=== PATIENT | female | born 1995 ===

== ENCOUNTER 2021-08-03 09:00 | Inpatient (IN) | payer BC ==
[2021-08-03] MEDS ORDERED: Ondansetron 4 MG/2 ML SDV IVPUSH PRN (12:08)
[2021-08-03] MEDS ORDERED: Lidocaine 1% 50 ML MDV INJECT PRN (12:08)
[2021-08-03] MEDS ORDERED: Sodium Chloride 0.9% 2.5 ML Syringe FLUSH PRN (12:08)
[2021-08-03] MEDS ORDERED: Water For Irrigation,Sterile 1,000 ML Container IRR PRN (12:08)
[2021-08-03] MEDS ORDERED: Nalbuphine 10 MG/1 ML Vial IVPUSH PRN (12:08)
[2021-08-03] MEDS ORDERED: Misoprostol 200 MCG Tab PO PRN (12:08)
[2021-08-03] MEDS ORDERED: Sodium Chloride 0.9% 10 ML Syringe FLUSH PRN (12:08)
[2021-08-03] MEDS ORDERED: Tranexamic Acid 1,000 MG in Sodium Chloride 0.9% 100 ML IV PRN (12:08)
[2021-08-03] MEDS ORDERED: Methylergonovine 0.2 MG/1 ML Amp IM PRN (12:08)
[2021-08-03] MEDS ORDERED: Sodium Chloride 0.9% 20 ML SDV IV PRN (12:08)
[2021-08-03] MEDS ORDERED: Carboprost Tromethamine 250 MCG/1 ML Amp IM PRN (12:08)
[2021-08-03] MEDS ORDERED: Oxytocin/0.9 % Sodium Chloride 30 UNIT/500 ML BAG IV SCH ×2 (12:15→12:45)
[2021-08-03] MEDS ORDERED: Terbutaline 1 MG/ML SDV SUBCUT PRN (12:34)
[2021-08-03] MEDS: Lactated Ringers 1,000 ML IV SCH ×2 (12:50→17:29)
[2021-08-03] MEDS: Butorphanol 1 MG/ML SDV IVPUSH PRN ×2 (12:58→14:21)
[2021-08-03] MEDS ORDERED: Ampicillin 2 GM in Sodium Chloride 0.9% 100 ML IV ONE (13:00)
[2021-08-03] MEDS ORDERED: Ropivacaine HCl/PF 100 ML ONE (15:56)
[2021-08-03] MEDS ORDERED: ePHEDrine 50 MG/ML SDV IVPUSH PRN ×2 (16:05)
--- NOTE | 2021-08-03 16:07 | PCM.PREANE ---
Preanesthetic Assessment - Anesthesia/Transfusion/Family Hx Anesthesia History: No Prior Anesthesia Family History of Anesthesia Reaction: No - Review of Systems General: No Symptoms Pulmonary: No Symptoms Cardiovascular: No Symptoms Gastrointestinal: No Symptoms Neurological: No Symptoms Other: Reports: None - Physical Assessment Height: 1.65 m Weight: 63.957 kg ASA Class: 2 Mental Status: Alert & Oriented x3 Dentition: Reports: Normal Dentition ROM/Head Extension: Full Lungs: Clear to Auscultation, Normal Respiratory Effort Cardiovascular: Regular Rate, Regular Rhythm - Lab Values: Laboratory Last Values WBC 16.36 K/uL (4.0-11.0) H 08/03/21 12:35 RBC 4.23 M/uL (4.30-5.90) L 08/03/21 12:35 Hgb 12.2 g/dL (12.0-16.0) 08/03/21 12:35 Hct 36.9 % (36.0-46.0) 08/03/21 12:35 MCV 87.2 fL (80.0-98.0) 08/03/21 12:35 MCH 28.8 pg (27.0-32.0) 08/03/21 12:35 MCHC 33.1 g/dL (31.0-37.0) 08/03/21 12:35 RDW Std Deviation 46.4 fl (28.0-62.0) 08/03/21 12:35 RDW Coeff of Tika 15 % (11.0-15.0) 08/03/21 12:35 Plt Count 296 K/uL (150-400) 08/03/21 12:35 MPV 9.80 fL (7.40-12.00) 08/03/21 12:35 Nucleated RBC % 0.0 /100WBC 08/03/21 12:35 Nucleated RBCs # 0 K/uL 08/03/21 12:35 SARS-CoV-2 RNA (SANDRA) NEGATIVE (NEGATIVE) 08/03/21 12:25 Blood Type O NEGATIVE 08/03/21 12:45 Antibody Screen POSITIVE 08/03/21 12:45 - Allergies Allergies/Adverse Reactions: Allergies Allergy/AdvReac Type Severity Reaction Status Date / Time No Known Allergies Allergy Verified 08/03/21 09:19 - Acknowledgements Anesthesia Type Planned: Epidural Pt an Appropriate Candidate for the Planned Anesthesia: Yes Alternatives and Risks of Anesthesia Discussed w Pt/Guardian: Yes Pt/Guardian Understands and Agrees with Anesthesia Plan: Yes PreAnesthesia Questionnaire - Past Health History Medical/Surgical History: Denies 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 (IN 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) MEDS Current Meds: Current Medications Butorphanol Tartrate (Butorphanol 1 Mg/Ml Sdv) 1 mg IVPUSH Q1H PRN PRN Reason: Pain (severe 7-10) Last Admin: 08/03/21 14:21 Dose: 1 mg Documented by: Carboprost Tromethamine (Carboprost Tromethamine 250 Mcg/1 Ml Amp) 250 mcg IM ASDIRECTED PRN PRN Reason: Post Hemorrhage Lactated Ringer's (Ringers, Lactated) 1,000 mls @ 150 mls/hr IV ASDIRECTED ARLETTE Last Admin: 08/03/21 12:50 Dose: 500 mls/hr Documented by: Oxytocin/Sodium Chloride (Oxytocin 30 Unit In Ns 0.9% 500 Ml Premix) 30 unit in 500 mls @ 500 mls/hr IV TITRATE [facility] Tranexamic Acid 1,000 mg/ (Sodium Chloride) 110 mls @ 660 mls/hr IV ONETIME PRN PRN Reason: Bleeding Oxytocin/Sodium Chloride (Oxytocin 30 Unit In Ns 0.9% 500 Ml Premix) 30 unit in 500 mls @ 2 mls/hr IV TITRATE [facility]; Protocol Ampicillin Sodium 1 gm/ Sodium (Chloride) 50 mls @ 100 mls/hr IV Q4H [facility] Lidocaine HCl (Lidocaine 1% 50 Ml Mdv) 50 ml INJECT ONETIME PRN PRN Reason: Laceration repair Methylergonovine Maleate (Methylergonovine 0.2 Mg/1 Ml Amp) 0.2 mg IM ASDIRECTED PRN PRN Reason: Post Hemorrhage Misoprostol (Misoprostol 200 Mcg Tab) 200 mcg PO ONETIME PRN PRN Reason: Post Hemorrhage Nalbuphine HCl (Nalbuphine 10 Mg/1 Ml Vial) 10 mg IVPUSH Q1H PRN PRN Reason: Pain (severe 7-10) Ondansetron HCl (Ondansetron 4 Mg/2 Ml Sdv) 4 mg IVPUSH Q4H PRN PRN Reason: Nausea/Vomiting Sodium Chloride (Sodium Chloride 0.9% 10 Ml Syringe) 10 ml FLUSH ASDIRECTED PRN PRN Reason: Keep Vein Open Sodium Chloride (Sodium Chloride 0.9% 2.5 Ml Syringe) 2.5 ml FLUSH ASDIRECTED PRN PRN Reason: Keep Vein Open Sodium Chloride (Sodium Chloride 0.9% 20 Ml Sdv) 10 ml IV ASDIRECTED PRN PRN Reason: IV Use Sterile Water (Water For Irrigation,Sterile 1,000 Ml Container) 1,000 ml IRR ASDIRECTED PRN PRN Reason: delivery Terbutaline Sulfate (Terbutaline 1 Mg/Ml Sdv) 0.25 mg SUBCUT ASDIRECTED PRN PRN Reason: Tacysystole Discontinued Medications Ampicillin Sodium 2 gm/ Sodium (Chloride) 100 mls @ 200 mls/hr IV ONETIME ONE Stop: 08/03/21 13:29 Last Admin: 08/03/21 12:50 Dose: 200 mls/hr Documented by: Ropivacaine (Naropin 0.2%) Confirm Administered Dose 100 mls @ as directed .ROUTE .[facility]-MED ONE Stop: 08/03/21 15:57
--- NOTE | 2021-08-03 16:10 | PCM.SN.2 ---
- Pre-Procedure Checklist Attending Provider Aware: No Chart Reviewed: No Consent Signed: No Labs Reviewed: No VS/FHR Reviewed: No Patient Identification Confirmation Method: Reports: Chart Visual, ID Band Barcode, ID Band Visual Pt an Appropriate Candidate for the Planned Anesthesia: No Alternatives and Risks of Anesthesia Discussed w Pt/Guardian: No - Procedure Procedure Start Date: 08/03/21 Procedure Start Time: 15:44 Functional IV: Yes Patient Position: Reports: Left Lateral Prep: Reports: Betadine x3 Regional Placement Level: Reports: L3-4 Approach: Reports: Midline Technique: Reports: MYRANDA Glass Syringe Parasthesia: Reports: None Continuous Infusion Start Time: 15:50 Continuous Infusion Medication: 0.2% Naropin Continuous Infusion Rate: 14 Continuous Infusion Lockout Dose (cc/hr): 28 Patient Position Post Placement: Reports: Supline/KIM Post-procedure Pain Level: 2 Procedure End Date: 08/03/21 Procedure End Time: 16:44
--- NOTE | 2021-08-03 16:11 | PCM.POSTAN ---
POST ANESTHESIA ASSESSMENT - MENTAL STATUS Mental Status: Alert, Oriented - RESPIRATORY Respiratory Status: Respiratory Rate WNL, Airway Patent, O2 Saturation Stable - CARDIOVASCULAR CV Status: Pulse Rate WNL, Blood Pressure Stable - GASTROINTESTINAL GI Status: No Symptoms - POST OP HYDRATION Hydration Status: Adequate & Stable
[2021-08-03] MEDS ORDERED: Ropivacaine/PF 400 MG/200 ML PCA EPIDUR SCH (16:15)
[2021-08-03] MEDS ORDERED: Ampicillin 1 GM Vial ONE (16:49)
[2021-08-03] MEDS: Ampicillin 1 GM in Sodium Chloride 0.9% 50 ML IV SCH ×2 (16:55→21:05)
[2021-08-03] MEDS ORDERED: Oxytocin 10 Units/1 ML SDV ONE (21:56)
[2021-08-03] MEDS ORDERED: Lidocaine 1% 20 ML MDV ONE (22:07)
[2021-08-03] MEDS ORDERED: Bisacodyl 10 MG Supp RECTAL PRN (22:46)
[2021-08-03] MEDS ORDERED: Witch Hazel Medicated Pads 40/Jar TOP PRN (22:46)
[2021-08-03] MEDS ORDERED: Docusate Sodium 100 MG Cap PO PRN (22:46)
[2021-08-03] MEDS ORDERED: Oxytocin 10 Units/1 ML SDV IM ONE (22:46)
[2021-08-03] MEDS ORDERED: Lanolin 100% Cream 7 GM Tube TOP PRN (22:46)
[2021-08-03] MEDS ORDERED: Benzocaine/Menthol 20%-0.5% Spray 78 GM Cannister TOP PRN (22:46)
[2021-08-03] MEDS ORDERED: oxyCODONE 5 MG Tab PO PRN (22:46)
[2021-08-03] MEDS ORDERED: Ibuprofen 800 MG Tab PO PRN (22:46)
--- NOTE | 2021-08-03 22:54 | PCM.DEL ---
L & D Note - General Info Date of Service: 08/03/21 Mother's Due Date: 07/25/21 - Delivery Note Labor: Spontaneous Delivery Outcome: Livebirth Infant Delivery Method: Spontaneous Vaginal Delivery-Single Presentation: Vertex Nuchal Cord: None Anesthesia Type: Epidural, Local Anesthetic: Lidocaine (Xylocaine) 1% Plain Amniotic Fluid Description: Meconium Stained Episiotomy Type: None Laceration: 2nd Degree, Periurethral Suture type: Vicryl Suture size: 4-0 Placenta: Intact, Spontaneous Cord: 3 Vessels Resuscitation Needed: No [place]: Stimulated, Warmed Score 1 min: 8 Score 5 min: 9 Delivery Comments (Free Text/Narrative):: Live female Weight 3630g Received 3 doses of Ampicillin after SROM for GBS+ - General Info Date of Service: 08/03/21 - Patient Data Weight - Most Recent: 63.957 kg Lab Results Last 24 Hours: Laboratory Results - last 24 hr 08/03/21 08/03/21 08/03/21 Range/Units 12:25 12:35 12:45 WBC 16.36 H (4.0-11.0) K/uL RBC 4.23 L (4.30-5.90) M/uL Hgb 12.2 (12.0-16.0) g/dL Hct 36.9 (36.0-46.0) % MCV 87.2 (80.0-98.0) fL MCH 28.8 (27.0-32.0) pg MCHC 33.1 (31.0-37.0) g/dL RDW Std Deviation 46.4 (28.0-62.0) fl RDW Coeff of Tika 15 (11.0-15.0) % Plt Count 296 (150-400) K/uL MPV 9.80 (7.40-12.00) fL Nucleated RBC % 0.0 /100WBC Nucleated RBCs # 0 K/uL SARS-CoV-2 RNA (SANDRA) NEGATIVE (NEGATIVE) Blood Type O NEGATIVE Antibody Screen NEGATIVE Antibody Identification Cancelled Med Orders - Current: Current Medications Acetaminophen (Acetaminophen 500 Mg Tab) 1,000 mg PO Q4H PRN PRN Reason: Pain (mild 1-3) Benzocaine/Menthol (Benzocaine/Menthol 20%-0.5% Prosperity 78 Gm Cannister) 78 gm TOP ASDIRECTED PRN PRN Reason: Perineal Comfort Measure Bisacodyl (Bisacodyl 10 Mg Supp) 10 mg RECTAL ONETIME PRN PRN Reason: Constipation Butorphanol Tartrate (Butorphanol 1 Mg/Ml Sdv) 1 mg IVPUSH Q1H PRN PRN Reason: Pain (severe 7-10) Last Admin: 08/03/21 14:21 Dose: 1 mg Documented by: Carboprost Tromethamine (Carboprost Tromethamine 250 Mcg/1 Ml Amp) 250 mcg IM ASDIRECTED PRN PRN Reason: Post Hemorrhage Docusate Sodium (Docusate Sodium 100 Mg Cap) 100 mg PO Q12H PRN PRN Reason: Constipation Emollient Ointment (Lanolin 100% Cream 7 Gm Tube) 0 gm TOP ASDIRECTED PRN PRN Reason: Sore Nipples Ephedrine Sulfate (Ephedrine 50 Mg/Ml Sdv) 10 mg IVPUSH Q1M PRN PRN Reason: Hypotension Ephedrine Sulfate (Ephedrine 50 Mg/Ml Sdv) 10 mg IVPUSH Q5M PRN PRN Reason: Hypotension Lactated Ringer's (Ringers, Lactated) 1,000 mls @ 150 mls/hr IV ASDIRECTED [facility] [place] Last Admin: 08/03/21 17:29 Dose: 150 mls/hr Documented by: Oxytocin/Sodium Chloride (Oxytocin 30 Unit In Ns 0.9% 500 Ml Premix) 30 unit in 500 mls @ 500 mls/hr IV TITRATE [facility] [place] Tranexamic Acid 1,000 mg/ (Sodium Chloride) 110 mls @ 660 mls/hr IV ONETIME PRN PRN Reason: Bleeding Oxytocin/Sodium Chloride (Oxytocin 30 Unit In Ns 0.9% 500 Ml Premix) 30 unit in 500 mls @ 2 mls/hr IV TITRATE [facility] [place]; Protocol Ampicillin Sodium 1 gm/ Sodium (Chloride) 50 mls @ 100 mls/hr IV Q4H [facility] [place] Last Admin: 08/03/21 21:05 Dose: 100 mls/hr Documented by: Ibuprofen (Ibuprofen 800 Mg Tab) 800 mg PO Q8H PRN PRN Reason: Cramping Lidocaine HCl (Lidocaine 1% 50 Ml Mdv) 50 ml INJECT ONETIME PRN PRN Reason: Laceration repair Methylergonovine Maleate (Methylergonovine 0.2 Mg/1 Ml Amp) 0.2 mg IM ASDIRECTED PRN PRN Reason: Post Hemorrhage Miscellaneous Medication (Phenylephrine Hcl In 0.9% Nacl 1 Mg/10 Ml Syringe) 0.1 mg IVPUSH Q1M PRN PRN Reason: Hypotension Misoprostol (Misoprostol 200 Mcg Tab) 200 mcg PO ONETIME PRN PRN Reason: Post Hemorrhage Nalbuphine HCl (Nalbuphine 10 Mg/1 Ml Vial) 10 mg IVPUSH Q1H PRN PRN Reason: Pain (severe 7-10) Ondansetron HCl (Ondansetron 4 Mg/2 Ml Sdv) 4 mg IVPUSH Q4H PRN PRN Reason: Nausea/Vomiting Oxycodone HCl (Oxycodone 5 Mg Tab) 5 mg PO Q2H PRN PRN Reason: Pain (severe 7-10) Oxytocin (Oxytocin 10 Units/1 Ml Sdv) 10 unit IM ASDIRECTED ONE Stop: 08/03/21 22:47 Ropivacaine (Ropivacaine/Pf 400 Mg/200 Ml Aging Room Operator) 400 mg EPIDUR ASDIRECTED ARLETTE Sodium Chloride (Sodium Chloride 0.9% 10 Ml Syringe) 10 ml FLUSH ASDIRECTED PRN PRN Reason: Keep Vein Open Sodium Chloride (Sodium Chloride 0.9% 2.5 Ml Syringe) 2.5 ml FLUSH ASDIRECTED PRN PRN Reason: Keep Vein Open Sodium Chloride (Sodium Chloride 0.9% 20 Ml Sdv) 10 ml IV ASDIRECTED PRN PRN Reason: IV Use Sterile Water (Water For Irrigation,Sterile 1,000 Ml Container) 1,000 ml IRR ASDIRECTED PRN PRN Reason: delivery Terbutaline Sulfate (Terbutaline 1 Mg/Ml Sdv) 0.25 mg SUBCUT ASDIRECTED PRN PRN Reason: Tacysystole Witch Wilma (Witch Wilma Medicated Pads 40/Jar) 1 pad TOP ASDIRECTED PRN PRN Reason: comfort care Discontinued Medications Ampicillin Sodium (Ampicillin 1 Gm Vial) Confirm Administered Dose 1 gm .ROUTE .STK-MED ONE Stop: 08/03/21 16:50 Ampicillin Sodium 2 gm/ Sodium (Chloride) 100 mls @ 200 mls/hr IV ONETIME ONE Stop: 08/03/21 13:29 Last Admin: 08/03/21 12:50 Dose: 200 mls/hr Documented by: Ropivacaine (Naropin 0.2%) Confirm Administered Dose 100 mls @ as directed .ROUTE .STK-MED ONE Stop: 08/03/21 15:57 Lidocaine HCl (Lidocaine 1% 20 Ml Mdv) Confirm Administered Dose 20 ml .ROUTE .STK-MED ONE Stop: 08/03/21 22:08 Last Admin: 08/03/21 22:10 Dose: 20 ml Documented by: Oxytocin (Oxytocin 10 Units/1 Ml Sdv) Confirm Administered Dose 20 unit .ROUTE .STK-MED ONE Stop: 08/03/21 21:57 Last Admin: 08/03/21 22:15 Dose: 10 unit Documented by: - Problem List & Annotations (1) Vaginal delivery SNOMED Code(s): 888081787 Code(s): O80 - ENCOUNTER FOR FULL-TERM UNCOMPLICATED DELIVERY Status: Acute Current Visit: Yes - Problem List Review Problem List Initiated/Reviewed/Updated: Yes - My Orders Last 24 Hours: My Active Orders 08/03/21 09:00 Patient Status [ADT] Routine 08/03/21 09:25 Resuscitation Status Routine 08/03/21 09:28 Up ad Janett [RC] ASDIRECTED Vital Signs [RC] PER UNIT ROUTINE 08/03/21 12:05 Admission Status [Patient Status] [ADT] Routine 08/03/21 12:08 Heart Tones [RC] CONTINUOUS Notify Provider [RC] PRN Butorphanol [Stadol] 1 mg IVPUSH Q1H PRN Carboprost Tromethamine [Hemabate DS] 250 mcg IM ASDIRECTED PRN Lidocaine 1% [Xylocaine 1%] 50 ml INJECT ONETIME PRN Methylergonovine [Methergine] 0.2 mg IM ASDIRECTED PRN Nalbuphine [Nubain] 10 mg IVPUSH Q1H PRN Ondansetron [Zofran] 4 mg IVPUSH Q4H PRN Sodium Chloride 0.9% [Normal Saline] 10 ml IV ASDIRECTED PRN Sodium Chloride 0.9% [Saline Flush] 10 ml FLUSH ASDIRECTED PRN Sodium Chloride 0.9% [Saline Flush] 2.5 ml FLUSH ASDIRECTED PRN Tranexamic Acid [Cyklokapron] 1,000 mg Sodium Chloride 0.9% [Normal Saline AdvBag] 100 ml IV ONETIME Water For Irrigation,Sterile [Sterile Water for Irrigation] 1,000 ml IRR ASDIRECTED PRN miSOPROStoL [Cytotec] 200 mcg PO ONETIME PRN Peripheral IV Insertion Adult [OM.PC] Routine 08/03/21 12:15 Lactated Ringers [Ringers, Lactated] 1,000 ml IV ASDIRECTED Oxytocin/0.9 % Sodium Chloride [Oxytocin 30 Unit in NS 0.9% 500 ML Premix] 30 unit in 500 ml IV TITRATE 08/03/21 12:34 Communication Order [RC] ASDIRECTED Terbutaline [Brethine] 0.25 mg SUBCUT ASDIRECTED PRN 08/03/21 12:35 RPR (SYPHILIS SERO) W/ RFLX [REF] Routine 08/03/21 12:45 Oxytocin/0.9 % Sodium Chloride [Oxytocin 30 Unit in NS 0.9% 500 ML Premix] 30 unit in 500 ml IV TITRATE 08/03/21 15:30 Ampicillin 1 gm Sodium Chloride 0.9% [Normal Saline AdvBag] 50 ml IV Q4H 08/03/21 22:46 Patient Status [ADT] Routine May Shower [RC] ASDIRECTED Notify Provider Vital Signs [RC] ASDIRECTED Up ad Janett [RC] ASDIRECTED Vital Signs [RC] PER UNIT ROUTINE BLOOD GAS VENOUS UMBILICAL [BG] Urgent Acetaminophen [Tylenol Extra Strength] 1,000 mg PO Q4H PRN Benzocaine/Menthol [Dermoplast Pain Relief 20%-0.5% Prosperity] 78 gm TOP ASDIRECT ED PRN Docusate Sodium [Colace] 100 mg PO Q12H PRN Ibuprofen [Motrin] 800 mg PO Q8H PRN Lanolin [Lansinoh HPA] See Dose Instructions TOP ASDIRECTED PRN Oxytocin [Pitocin] 10 unit IM ASDIRECTED ONE bisacodyL [Dulcolax] 10 mg RECTAL ONETIME PRN oxyCODONE 5 mg PO Q2H PRN witch Wilma [Tucks] 1 pad TOP ASDIRECTED PRN Assess Lochia [WOMSER] Per Unit Routine Assess Uterine Involution [WOMSER] Per Unit Routine Breast Pump [WOMSER] Per Unit Routine Perineal Care [OM.PC] Per Unit Routine Peripheral IV Discontinue [OM.PC] Routine Sitz Bath [OM.PC] Per Unit Routine 08/03/21 22:47 Cooling Warming Measures [RC] ASDIRECTED Ice Therapy [OM.PC] Per Unit Routine 08/04/21 05:11 HEMOGLOBIN/HEMATOCRIT,HH [HEME] Timed 08/04/21 Breakfast Regular Diet [DIET] - Assessment Assessment:: 26yo s/p at 41w2d - Plan Plan:: -Admit to unit for routine cares -O negative, Rubella immune, GBS positive - Rhogam studies pending; did not receive adequate antibiotic prophylaxis prior to rupture of membranes, will likely stay for 48 hours of monitoring
[2021-08-03] MEDS: Ondansetron 4 MG Tab.DIS PO PRN (23:18)
--- NOTE | 2021-08-04 00:27 | OR ---
SURGEON: Jazlyn Macdonald MD DATE OF PROCEDURE: 08/03/2021 PREOPERATIVE DIAGNOSES: 1. 26-year-old, G1, P0, at 41 weeks and 2 days' gestation. 2. Labor. 3. Group B Streptococcus positive. POSTOPERATIVE DIAGNOSES: 1. 26-year-old, G1, P1-0-0-1, at 41 weeks and 2 days' gestation. 2. Labor. 3. Group B Streptococcus positive. PROCEDURE: Spontaneous vaginal delivery and repair of periurethral and second-degree perineal lacerations. ANESTHESIA: Epidural and lidocaine. ESTIMATED BLOOD LOSS: 600 mL. MEDICATIONS GIVEN: 10 units of IM Pitocin due to pain with IV. FINDINGS: Live female infant in cephalic presentation. scores of 8 and 9 at one and five minutes respectively. Weight 3630 grams. Placenta intact with 3-vessel cord. Second-degree perineal and periurethral lacerations. Labial edema. DESCRIPTION OF PROCEDURE: This is a 26-year-old, G1, P0, who presented at 41 weeks and 2 days' gestation complaining of contractions. Upon presentation, her cervix was found to be 3 cm dilated. Over the next hour with walking, she progressed to 4 cm dilated. She was admitted to Labor and Delivery for expectant management of labor. Ampicillin was started for GBS prophylaxis. Spontaneous rupture of membranes occurred with light meconium fluid noted. She received an epidural for pain control. She progressed to complete cervical dilation. She began pushing. After approximately 3 hours of pushing, I was called to the room. The cervix was completely dilated and infant's head was at +3 station. Over the next hour, the patient pushed and delivered a live female . Head was delivered, followed by the shoulders and remainder of the body. The infant was placed on maternal abdomen. After approximately 60 seconds, cord was clamped and cut. Cord blood and cord gases were obtained. The placenta was then delivered intact with 3-vessel cord via the Domingo-Pickett maneuver. The perineum was inspected and a second-degree perineal and periurethral lacerations were noted. These were repaired to anatomy and hemostasis with 2-0 Vicryl and 4- 0 Vicryl suture. IV Pitocin was not able to be given due to patient's discomfort with fluids running to IV. She was given 10 units of IM Pitocin with subsequent increase in uterine tone and decrease in vaginal bleeding. At the end of the repair, the patient's fundus was firm below the umbilicus. The patient and infant tolerated the delivery well. [id number] / MODL /[id number] MTDD
[2021-08-04] MEDS: Acetaminophen 500 MG Tab PO PRN ×4 (03:42→20:05)
[2021-08-04] MEDS: Ondansetron 4 MG Tab.DIS PO PRN (03:42)
--- NOTE | 2021-08-04 08:00 | PCM.PNPP ---
- General Info Date of Service: 08/04/21 Subjective Update: Patient is tired but doing well. Cramping controlled with Tylenol, minimal bleeding. Has not ambulated since arriving on unit. Functional Status: Reports: Pain Controlled, Tolerating Diet - Review of Systems General: Reports: No Symptoms HEENT: Reports: No Symptoms Pulmonary: Reports: No Symptoms Cardiovascular: Reports: No Symptoms Gastrointestinal: Reports: No Symptoms Genitourinary: Reports: No Symptoms Musculoskeletal: Reports: No Symptoms Skin: Reports: No Symptoms Neurological: Reports: No Symptoms Psychiatric: Reports: No Symptoms - Patient Data Weight - Most Recent: 63.957 kg Lab Results - Last 24 Hours: Laboratory Results - last 24 hr 08/03/21 08/03/21 08/03/21 Range/Units 12:25 12:35 12:45 WBC 16.36 H (4.0-11.0) K/uL RBC 4.23 L (4.30-5.90) M/uL Hgb 12.2 (12.0-16.0) g/dL Hct 36.9 (36.0-46.0) % MCV 87.2 (80.0-98.0) fL MCH 28.8 (27.0-32.0) pg MCHC 33.1 (31.0-37.0) g/dL RDW Std Deviation 46.4 (28.0-62.0) fl RDW Coeff of Tika 15 (11.0-15.0) % Plt Count 296 (150-400) K/uL MPV 9.80 (7.40-12.00) fL Nucleated RBC % 0.0 /100WBC Nucleated RBCs # 0 K/uL Cord VBG pH (7.25-7.45) Cord VBG Base Excess (-10--2) SARS-CoV-2 RNA (SANDRA) NEGATIVE (NEGATIVE) Blood Type O NEGATIVE Antibody Screen NEGATIVE Antibody Identification Cancelled 08/03/21 08/04/21 Range/Units 22:03 05:47 WBC (4.0-11.0) K/uL RBC (4.30-5.90) M/uL Hgb 8.2 L (12.0-16.0) g/dL Hct 24.9 L (36.0-46.0) % MCV (80.0-98.0) fL MCH (27.0-32.0) pg MCHC (31.0-37.0) g/dL RDW Std Deviation (28.0-62.0) fl RDW Coeff of Tika (11.0-15.0) % Plt Count (150-400) K/uL MPV (7.40-12.00) fL Nucleated RBC % /100WBC Nucleated RBCs # K/uL Cord VBG pH 7.363 (7.25-7.45) Cord VBG Base Excess -5 (-10--2) SARS-CoV-2 RNA (SANDRA) (NEGATIVE) Blood Type Antibody Screen Antibody Identification Med Orders - Current: Current Medications Acetaminophen (Acetaminophen 500 Mg Tab) 1,000 mg PO Q4H PRN PRN Reason: Pain (mild 1-3) Last Admin: 08/04/21 03:42 Dose: 1,000 mg Documented by: Ascorbic Acid (Ascorbic Acid 500 Mg Tab) 500 mg PO BID ARLETTE Benzocaine/Menthol (Benzocaine/Menthol 20%-0.5% [place] 78 Gm Cannister) 78 gm TOP ASDIRECTED PRN PRN Reason: Perineal Comfort Measure Last Admin: 08/04/21 05:39 Dose: 1 spray Documented by: Bisacodyl (Bisacodyl 10 Mg Supp) 10 mg RECTAL ONETIME PRN PRN Reason: Constipation Butorphanol Tartrate (Butorphanol 1 Mg/Ml Sdv) 1 mg IVPUSH Q1H PRN PRN Reason: Pain (severe 7-10) Last Admin: 08/03/21 14:21 Dose: 1 mg Documented by: Carboprost Tromethamine (Carboprost Tromethamine 250 Mcg/1 Ml Amp) 250 mcg IM ASDIRECTED PRN PRN Reason: Post Hemorrhage Docusate Sodium (Docusate Sodium 100 Mg Cap) 100 mg PO Q12H PRN PRN Reason: Constipation Emollient Ointment (Lanolin 100% Cream 7 Gm Tube) 0 gm TOP ASDIRECTED PRN PRN Reason: Sore Nipples Ephedrine Sulfate (Ephedrine 50 Mg/Ml Sdv) 10 mg IVPUSH Q1M PRN PRN Reason: Hypotension Ephedrine Sulfate (Ephedrine 50 Mg/Ml Sdv) 10 mg IVPUSH Q5M PRN PRN Reason: Hypotension Ferrous Sulfate (Ferrous Sulfate 325 Mg Tab) 325 mg PO BID [facility] Lactated Ringer's (Ringers, Lactated) 1,000 mls @ 150 mls/hr IV ASDIRECTED [facility] Last Admin: 08/03/21 17:29 Dose: 150 mls/hr Documented by: Oxytocin/Sodium Chloride (Oxytocin 30 Unit In Ns 0.9% 500 Ml Premix) 30 unit in 500 mls @ 500 mls/hr IV TITRATE ARLETTE Tranexamic Acid 1,000 mg/ (Sodium Chloride) 110 mls @ 660 mls/hr IV ONETIME PRN PRN Reason: Bleeding Oxytocin/Sodium Chloride (Oxytocin 30 Unit In Ns 0.9% 500 Ml Premix) 30 unit in 500 mls @ 2 mls/hr IV TITRATE [facility]; Protocol Ampicillin Sodium 1 gm/ Sodium (Chloride) 50 mls @ 100 mls/hr IV Q4H [facility] Last Admin: 08/03/21 21:05 Dose: 100 mls/hr Documented by: Ibuprofen (Ibuprofen 800 Mg Tab) 800 mg PO Q8H PRN PRN Reason: Cramping Lidocaine HCl (Lidocaine 1% 50 Ml Mdv) 50 ml INJECT ONETIME PRN PRN Reason: Laceration repair Methylergonovine Maleate (Methylergonovine 0.2 Mg/1 Ml Amp) 0.2 mg IM ASDIRECTED PRN PRN Reason: Post Hemorrhage Miscellaneous Medication (Phenylephrine Hcl In 0.9% Nacl 1 Mg/10 Ml Syringe) 0.1 mg IVPUSH Q1M PRN PRN Reason: Hypotension Misoprostol (Misoprostol 200 Mcg Tab) 200 mcg PO ONETIME PRN PRN Reason: Post Hemorrhage Nalbuphine HCl (Nalbuphine 10 Mg/1 Ml Vial) 10 mg IVPUSH Q1H PRN PRN Reason: Pain (severe 7-10) Ondansetron HCl (Ondansetron 4 Mg/2 Ml Sdv) 4 mg IVPUSH Q4H PRN PRN Reason: Nausea/Vomiting Ondansetron HCl (Ondansetron 4 Mg Tab.Dis) 4 mg PO Q4H PRN PRN Reason: Nausea/Vomiting Last Admin: 08/04/21 03:42 Dose: 4 mg Documented by: Oxycodone HCl (Oxycodone 5 Mg Tab) 5 mg PO Q2H PRN PRN Reason: Pain (severe 7-10) Ropivacaine (Ropivacaine/Pf 400 Mg/200 Ml [place] Trimmer) 400 mg EPIDUR ASDIRECTED ARLETTE Sodium Chloride (Sodium Chloride 0.9% 10 Ml Syringe) 10 ml FLUSH ASDIRECTED PRN PRN Reason: Keep Vein Open Sodium Chloride (Sodium Chloride 0.9% 2.5 Ml Syringe) 2.5 ml FLUSH ASDIRECTED PRN PRN Reason: Keep Vein Open Sodium Chloride (Sodium Chloride 0.9% 20 Ml Sdv) 10 ml IV ASDIRECTED PRN PRN Reason: IV Use Sterile Water (Water For Irrigation,Sterile 1,000 Ml Container) 1,000 ml IRR ASDIRECTED PRN PRN Reason: delivery Terbutaline Sulfate (Terbutaline 1 Mg/Ml Sdv) 0.25 mg SUBCUT ASDIRECTED PRN PRN Reason: Tacysystole Witch Wilma (Witch Wilma Medicated Pads 40/Jar) 1 pad TOP ASDIRECTED PRN PRN Reason: comfort care Last Admin: 08/04/21 05:38 Dose: 1 pad Documented by: Discontinued Medications Ampicillin Sodium (Ampicillin 1 Gm Vial) Confirm Administered Dose 1 gm .ROUTE .STK-MED ONE Stop: 08/03/21 16:50 Ampicillin Sodium 2 gm/ Sodium (Chloride) 100 mls @ 200 mls/hr IV ONETIME ONE Stop: 08/03/21 13:29 Last Admin: 08/03/21 12:50 Dose: 200 mls/hr Documented by: Ropivacaine (Naropin 0.2%) Confirm Administered Dose 100 mls @ as directed .ROUTE .STK-MED ONE Stop: 08/03/21 15:57 Lidocaine HCl (Lidocaine 1% 20 Ml Mdv) Confirm Administered Dose 20 ml .ROUTE .STK-MED ONE Stop: 08/03/21 22:08 Last Admin: 08/03/21 22:10 Dose: 20 ml Documented by: Oxytocin (Oxytocin 10 Units/1 Ml Sdv) Confirm Administered Dose 20 unit .ROUTE .STK-MED ONE Stop: 08/03/21 21:57 Last Admin: 08/03/21 22:15 Dose: 10 unit Documented by: Oxytocin (Oxytocin 10 Units/1 Ml Sdv) 10 unit IM ASDIRECTED ONE Stop: 08/03/21 22:47 - Infant Interaction Disposition, : at Bedside Infant Interaction: Not Interacting Feeding: Bottle Fed , Other (see below) (wanting to breastfeed, has not yet attempted) Support Person: - Recovery Exam Fundal Tone: Firm Fundal Level: 2 Fingerbreadths Below Umbilicus Fundal Placement: Midline Lochia Amount: Small Lochia Color: Rubra/Red Perineum Description: Edematous Bladder Status: Nonpalpable - Exam General: Alert, Oriented Neck: Supple Lungs: Normal Respiratory Effort GI/Abdominal Exam: Soft, Non-Tender, No Distention Extremities: Non-Tender, No Pedal Edema Skin: Warm, Dry, Intact Neurological: No New Focal Deficit Psy/Mental Status: Alert, Normal Affect, Normal Mood - Problem List & Annotations (1) Vaginal delivery SNOMED Code(s): 062808480 Code(s): O80 - ENCOUNTER FOR FULL-TERM UNCOMPLICATED DELIVERY Status: Acute Current Visit: Yes - Problem List Review Problem List Initiated/Reviewed/Updated: Yes - My Orders Last 24 Hours: My Active Orders 08/03/21 09:00 Patient Status [ADT] Routine 08/03/21 09:25 Resuscitation Status Routine 08/03/21 09:28 Up ad Janett [RC] ASDIRECTED Vital Signs [RC] PER UNIT ROUTINE 08/03/21 12:05 Admission Status [Patient Status] [ADT] Routine 08/03/21 12:08 Heart Tones [RC] CONTINUOUS Notify Provider [RC] PRN Butorphanol [Stadol] 1 mg IVPUSH Q1H PRN Carboprost Tromethamine [Hemabate DS] 250 mcg IM ASDIRECTED PRN Lidocaine 1% [Xylocaine 1%] 50 ml INJECT ONETIME PRN Methylergonovine [Methergine] 0.2 mg IM ASDIRECTED PRN Nalbuphine [Nubain] 10 mg IVPUSH Q1H PRN Ondansetron [Zofran] 4 mg IVPUSH Q4H PRN Sodium Chloride 0.9% [Normal Saline] 10 ml IV ASDIRECTED PRN Sodium Chloride 0.9% [Saline Flush] 10 ml FLUSH ASDIRECTED PRN Sodium Chloride 0.9% [Saline Flush] 2.5 ml FLUSH ASDIRECTED PRN Tranexamic Acid [Cyklokapron] 1,000 mg Sodium Chloride 0.9% [Normal Saline AdvBag] 100 ml IV ONETIME Water For Irrigation,Sterile [Sterile Water for Irrigation] 1,000 ml IRR ASDIRECTED PRN miSOPROStoL [Cytotec] 200 mcg PO ONETIME PRN Peripheral IV Insertion Adult [OM.PC] Routine 08/03/21 12:15 Lactated Ringers [Ringers, Lactated] 1,000 ml IV ASDIRECTED Oxytocin/0.9 % Sodium Chloride [Oxytocin 30 Unit in NS 0.9% 500 ML Premix] 30 unit in 500 ml IV TITRATE 08/03/21 12:34 Communication Order [RC] ASDIRECTED Terbutaline [Brethine] 0.25 mg SUBCUT ASDIRECTED PRN 08/03/21 12:35 RPR (SYPHILIS SERO) W/ RFLX [REF] Routine 08/03/21 12:45 Oxytocin/0.9 % Sodium Chloride [Oxytocin 30 Unit in NS 0.9% 500 ML Premix] 30 unit in 500 ml IV TITRATE 08/03/21 15:30 Ampicillin 1 gm Sodium Chloride 0.9% [Normal Saline AdvBag] 50 ml IV Q4H 08/03/21 22:46 Patient Status [ADT] Routine May Shower [RC] ASDIRECTED Notify Provider Vital Signs [RC] ASDIRECTED Up ad Janett [RC] ASDIRECTED Vital Signs [RC] PER UNIT ROUTINE Acetaminophen [Tylenol Extra Strength] 1,000 mg PO Q4H PRN Benzocaine/Menthol [Dermoplast Pain Relief 20%-0.5% [place]] 78 gm TOP ASDIRECTED PRN Docusate Sodium [Colace] 100 mg PO Q12H PRN Ibuprofen [Motrin] 800 mg PO Q8H PRN Lanolin [Lansinoh HPA] See Dose Instructions TOP ASDIRECTED PRN bisacodyL [Dulcolax] 10 mg RECTAL ONETIME PRN oxyCODONE 5 mg PO Q2H PRN witch Wilma [Tucks] 1 pad TOP ASDIRECTED PRN Assess Lochia [WOMSER] Per Unit Routine Assess Uterine Involution [WOMSER] Per Unit Routine Breast Pump [WOMSER] Per Unit Routine Perineal Care [OM.PC] Per Unit Routine Peripheral IV Discontinue [OM.PC] Routine Sitz Bath [OM.PC] Per Unit Routine 08/03/21 22:47 Cooling Warming Measures [RC] ASDIRECTED Ice Therapy [OM.PC] Per Unit Routine 08/03/21 23:05 Ondansetron [Zofran ODT] 4 mg PO Q4H PRN 08/04/21 Breakfast Regular Diet [DIET] 08/04/21 09:00 Ascorbic Acid [Vitamin C] 500 mg PO BID Ferrous Sulfate 325 mg PO BID - Assessment Assessment:: 26yo s/p at 41w2d, PPD#1 - Plan Plan:: -Continue routine cares -O negative, Rubella immune, GBS positive - Baby Rh negative, Rhogam not indicated; did not receive adequate antibiotic prophylaxis prior to rupture of membranes, will likely stay for 48 hours of monitoring -Dispo - discharge home on PPD#2 due to GBS monitoring of baby
[2021-08-04] MEDS: Ferrous Sulfate 325 MG Tab PO SCH ×2 (09:15→21:26)
[2021-08-04] MEDS: Ascorbic Acid 500 MG Tab PO SCH ×2 (09:16→21:26)
[2021-08-04] MEDS: Psyllium Husk Powder Sugar Free 5.85 GM Packet PO SCH (23:19)
--- NOTE | 2021-08-05 02:33 | PCM48HPAN ---
Post Anesthesia Note - EVALUATION WITHIN 48HRS OF ANESTHETIC Vital Signs in Normal Range: Yes Patient Participated in Evaluation: Yes Respiratory Function Stable: Yes Airway Patent: Yes Cardiovascular Function Stable: Yes Hydration Status Stable: Yes Pain Control Satisfactory: Yes Nausea and Vomiting Control Satisfactory: Yes Mental Status Recovered: Yes Vital Signs: Last Vital Signs Temp 98.0 F 08/04/21 19:30 Pulse 96 08/04/21 19:30 Resp 18 08/04/21 19:30 BP 149/71 H 08/04/21 19:30 Pulse Ox 98 08/04/21 19:30
[2021-08-05] MEDS: Acetaminophen 500 MG Tab PO PRN ×3 (02:45→14:16)
[2021-08-05] MEDS: Ascorbic Acid 500 MG Tab PO SCH (08:33)
[2021-08-05] MEDS: Ferrous Sulfate 325 MG Tab PO SCH (08:33)
[2021-08-05] MEDS: Psyllium Husk Powder Sugar Free 5.85 GM Packet PO SCH (09:49)
--- NOTE | 2021-08-05 09:57 | PCM.PNPP ---
- General Info Date of Service: 08/05/21 Functional Status: Reports: Pain Controlled, Tolerating Diet, Ambulating, Urinating - Review of Systems General: Reports: No Symptoms HEENT: Reports: No Symptoms Pulmonary: Reports: No Symptoms Cardiovascular: Reports: No Symptoms Gastrointestinal: Reports: No Symptoms Genitourinary: Reports: No Symptoms Musculoskeletal: Reports: No Symptoms Skin: Reports: No Symptoms Neurological: Reports: No Symptoms Psychiatric: Reports: No Symptoms - Patient Data Vital Signs - Most Recent: Last Vital Signs Temp 36.4 C 08/05/21 02:51 Pulse 96 08/05/21 02:51 Resp 18 08/05/21 02:51 BP 110/62 08/05/21 02:51 Pulse Ox 98 08/05/21 02:51 Weight - Most Recent: 63.957 kg Med Orders - Current: Current Medications Acetaminophen (Acetaminophen 500 Mg Tab) 1,000 mg PO Q4H PRN PRN Reason: Pain (mild 1-3) Last Admin: 08/05/21 08:31 Dose: 1,000 mg Documented by: Ascorbic Acid (Ascorbic Acid 500 Mg Tab) 500 mg PO BID ARLETTE Last Admin: 08/05/21 08:33 Dose: 500 mg Documented by: Benzocaine/Menthol (Benzocaine/Menthol 20%-0.5% [place] 78 Gm Cannister) 78 gm TOP ASDIRECTED PRN PRN Reason: Perineal Comfort Measure Last Admin: 08/04/21 05:39 Dose: 1 spray Documented by: Bisacodyl (Bisacodyl 10 Mg Supp) 10 mg RECTAL ONETIME PRN PRN Reason: Constipation Butorphanol Tartrate (Butorphanol 1 Mg/Ml Sdv) 1 mg IVPUSH Q1H PRN PRN Reason: Pain (severe 7-10) Last Admin: 08/03/21 14:21 Dose: 1 mg Documented by: Carboprost Tromethamine (Carboprost Tromethamine 250 Mcg/1 Ml Amp) 250 mcg IM ASDIRECTED PRN PRN Reason: Post Hemorrhage Docusate Sodium (Docusate Sodium 100 Mg Cap) 100 mg PO Q12H PRN PRN Reason: Constipation Emollient Ointment (Lanolin 100% Cream 7 Gm Tube) 0 gm TOP ASDIRECTED PRN PRN Reason: Sore Nipples Ephedrine Sulfate (Ephedrine 50 Mg/Ml Sdv) 10 mg IVPUSH Q1M PRN PRN Reason: Hypotension Ephedrine Sulfate (Ephedrine 50 Mg/Ml Sdv) 10 mg IVPUSH Q5M PRN PRN Reason: Hypotension Ferrous Sulfate (Ferrous Sulfate 325 Mg Tab) 325 mg PO BID [facility] Last Admin: 08/05/21 08:33 Dose: 325 mg Documented by: Lactated Ringer's (Ringers, Lactated) 1,000 mls @ 150 mls/hr IV ASDIRECTED [facility] Last Admin: 08/03/21 17:29 Dose: 150 mls/hr Documented by: Oxytocin/Sodium Chloride (Oxytocin 30 Unit In Ns 0.9% 500 Ml Premix) 30 unit in 500 mls @ 500 mls/hr IV TITRATE [facility] Tranexamic Acid 1,000 mg/ (Sodium Chloride) 110 mls @ 660 mls/hr IV ONETIME PRN PRN Reason: Bleeding Oxytocin/Sodium Chloride (Oxytocin 30 Unit In Ns 0.9% 500 Ml Premix) 30 unit in 500 mls @ 2 mls/hr IV TITRATE [facility]; Protocol Ampicillin Sodium 1 gm/ Sodium (Chloride) 50 mls @ 100 mls/hr IV Q4H [facility] Last Admin: 08/03/21 21:05 Dose: 100 mls/hr Documented by: Ibuprofen (Ibuprofen 800 Mg Tab) 800 mg PO Q8H PRN PRN Reason: Cramping Lidocaine HCl (Lidocaine 1% 50 Ml Mdv) 50 ml INJECT ONETIME PRN PRN Reason: Laceration repair Methylergonovine Maleate (Methylergonovine 0.2 Mg/1 Ml Amp) 0.2 mg IM ASDIRECTED PRN PRN Reason: Post Hemorrhage Miscellaneous Medication (Phenylephrine Hcl In 0.9% Nacl 1 Mg/10 Ml Syringe) 0.1 mg IVPUSH Q1M PRN PRN Reason: Hypotension Misoprostol (Misoprostol 200 Mcg Tab) 200 mcg PO ONETIME PRN PRN Reason: Post Hemorrhage Nalbuphine HCl (Nalbuphine 10 Mg/1 Ml Vial) 10 mg IVPUSH Q1H PRN PRN Reason: Pain (severe 7-10) Ondansetron HCl (Ondansetron 4 Mg/2 Ml Sdv) 4 mg IVPUSH Q4H PRN PRN Reason: Nausea/Vomiting Ondansetron HCl (Ondansetron 4 Mg Tab.Dis) 4 mg PO Q4H PRN PRN Reason: Nausea/Vomiting Last Admin: 08/04/21 03:42 Dose: 4 mg Documented by: Oxycodone HCl (Oxycodone 5 Mg Tab) 5 mg PO Q2H PRN PRN Reason: Pain (severe 7-10) Psyllium Husk (Psyllium Husk Powder Sugar Free 5.85 Gm Packet) 1 pkt PO DAILY ARLETTE Last Admin: 08/05/21 09:49 Dose: Not Given Documented by: Ropivacaine (Ropivacaine/Pf 400 Mg/200 Ml Neuro Intensivist Physician) 400 mg EPIDUR ASDIRECTED ARLETTE Sodium Chloride (Sodium Chloride 0.9% 10 Ml Syringe) 10 ml FLUSH ASDIRECTED PRN PRN Reason: Keep Vein Open Sodium Chloride (Sodium Chloride 0.9% 2.5 Ml Syringe) 2.5 ml FLUSH ASDIRECTED PRN PRN Reason: Keep Vein Open Sodium Chloride (Sodium Chloride 0.9% 20 Ml Sdv) 10 ml IV ASDIRECTED PRN PRN Reason: IV Use Sterile Water (Water For Irrigation,Sterile 1,000 Ml Container) 1,000 ml IRR ASDIRECTED PRN PRN Reason: delivery Terbutaline Sulfate (Terbutaline 1 Mg/Ml Sdv) 0.25 mg SUBCUT ASDIRECTED PRN PRN Reason: Tacysystole Witch Wilma (Witch Wilma Medicated Pads 40/Jar) 1 pad TOP ASDIRECTED PRN PRN Reason: comfort care Last Admin: 08/04/21 05:38 Dose: 1 pad Documented by: Discontinued Medications Ampicillin Sodium (Ampicillin 1 Gm Vial) Confirm Administered Dose 1 gm .ROUTE .STK-MED ONE Stop: 08/03/21 16:50 Ampicillin Sodium 2 gm/ Sodium (Chloride) 100 mls @ 200 mls/hr IV ONETIME ONE Stop: 08/03/21 13:29 Last Admin: 08/03/21 12:50 Dose: 200 mls/hr Documented by: Ropivacaine (Naropin 0.2%) Confirm Administered Dose 100 mls @ as directed .ROUTE .STK-MED ONE Stop: 08/03/21 15:57 Lidocaine HCl (Lidocaine 1% 20 Ml Mdv) Confirm Administered Dose 20 ml .ROUTE .STK-MED ONE Stop: 08/03/21 22:08 Last Admin: 08/03/21 22:10 Dose: 20 ml Documented by: Oxytocin (Oxytocin 10 Units/1 Ml Sdv) Confirm Administered Dose 20 unit .ROUTE .STK-MED ONE Stop: 08/03/21 21:57 Last Admin: 08/03/21 22:15 Dose: 10 unit Documented by: Oxytocin (Oxytocin 10 Units/1 Ml Sdv) 10 unit IM ASDIRECTED ONE Stop: 08/03/21 22:47 - Infant Interaction Disposition, : [place] at Bedside Interaction: Not Interacting Infant Feeding: Bottle Fed , Other (see below) (wanting to breastfeed, has not yet attempted) Support Person: - Recovery Exam Fundal Tone: Firm Fundal Level: 1 Fingerbreadths Below Umbilicus Fundal Placement: Midline Lochia Amount: Small Lochia Color: Rubra/Red Perineum Description: Edematous Episiotomy/Laceration: Approximated Bladder Status: Voiding Urinary Elimination: Voided - Exam General: Alert Neck: Supple Lungs: Normal Respiratory Effort GI/Abdominal Exam: Soft, Non-Tender, No Distention Skin: Warm Neurological: No New Focal Deficit Psy/Mental Status: Alert, Normal Affect, Normal Mood - Problem List & Annotations (1) Vaginal delivery SNOMED Code(s): 377327147 Code(s): O80 - ENCOUNTER FOR FULL-TERM UNCOMPLICATED DELIVERY Status: Acute Current Visit: Yes - Problem List Review Problem List Initiated/Reviewed/Updated: Yes - My Orders Last 24 Hours: My Active Orders 08/04/21 21:15 Psyllium Husk/Aspartame [Metamucil Sugar Free] 1 pkt PO DAILY 08/05/21 09:35 Ready for Discharge [RC] PER UNIT ROUTINE - Assessment Assessment:: 26yo s/p at 41w2d, PPD#2 Stable Minimal lochia. Baby Rh negative - Plan Plan:: discharge home today on PPD#2 due to GBS monitoring of baby. Discharge instructions reviewed with patient.
== END 2021-08-05 19:05 | disposition home or self-care (01) | DRG 560 ==
LOC: MW.OB 09:00 → MW.OBCHECK 09:00 → MW.OB 12:05 → OBSVTOIN 22:01 → MW.OB 08-04 05:35
PROVIDERS: ADMIT Obstetrics & Gynecology; ATTEND Obstetrics & Gynecology
PROC: 10E0XZZ Delivery of Products of Conception, External Approach (ICD-10-PCS; principal; 2021-08-03)
PROC: 10E0XZZ Delivery of Products of Conception, External Approach (ICD-10-PCS; 2021-08-03)
PROC: 0KQM0ZZ Repair Perineum Muscle, Open Approach (ICD-10-PCS; 2021-08-03)
PROC: 3E0R3BZ Introduction of Anesthetic Agent into Spinal Canal, Percutaneous Approach (ICD-10-PCS; 2021-08-03)
PROC: 00HU33Z Insertion of Infusion Device into Spinal Canal, Percutaneous Approach (ICD-10-PCS; 2021-08-03)
PROC: 4A1HXCZ Monitoring of Products of Conception, Cardiac Rate, External Approach (ICD-10-PCS; 2021-08-03)
DX: O99.824 Streptococcus B carrier state complicating childbirth (principal); Z3A.41 41 weeks gestation of pregnancy; Z37.0 Single live birth; O48.0 Post-term pregnancy; O77.0 Labor and delivery complicated by meconium in amniotic fluid; O70.1 Second degree perineal laceration during delivery; O99.02 Anemia complicating childbirth; D64.9 Anemia, unspecified; Z20.822 Contact with and (suspected) exposure to COVID-19
CPT/HCPCS: 36415; 51701; 59025; 59409; 82803; 85014; 85018; 85027; 86592; 86850; 86900; 86901; A9270-GY; J0290; J0595; J2590; J2795; J7120; U0002

== ENCOUNTER 2022-12-04 05:07 | Inpatient (IN) | payer BC ==
[2022-12-04] MEDS ORDERED: Terbutaline 1 MG/ML SDV SUBCUT PRN (05:25)
[2022-12-04] MEDS ORDERED: Methylergonovine 0.2 MG/1 ML Amp IM PRN (05:25)
[2022-12-04] MEDS ORDERED: Butorphanol 1 MG/ML SDV IVPUSH PRN (05:25)
[2022-12-04] MEDS ORDERED: Lidocaine 1% 50 ML MDV INJECT PRN (05:25)
[2022-12-04] MEDS ORDERED: Tranexamic Acid 1,000 MG in Sodium Chloride 0.9% 100 ML IV PRN (05:25)
[2022-12-04] MEDS ORDERED: Ondansetron 4 MG/2 ML SDV IVPUSH PRN (05:25)
[2022-12-04] MEDS ORDERED: Sodium Chloride 0.9% 10 ML Syringe FLUSH PRN (05:25)
[2022-12-04] MEDS ORDERED: Water For Irrigation,Sterile 1,000 ML Container IRR PRN (05:25)
[2022-12-04] MEDS ORDERED: Ampicillin 2 GM in Sodium Chloride 0.9% 100 ML IV ONE (05:25)
[2022-12-04] MEDS ORDERED: Misoprostol 200 MCG Tab PO PRN (05:25)
[2022-12-04] MEDS ORDERED: Carboprost Tromethamine 250 MCG/1 ML Amp IM PRN (05:25)
[2022-12-04] MEDS ORDERED: Sodium Chloride 0.9% 20 ML SDV IV PRN (05:25)
[2022-12-04] MEDS ORDERED: Sodium Chloride 0.9% 2.5 ML Syringe FLUSH PRN (05:25)
[2022-12-04] MEDS ORDERED: Oxytocin/0.9 % Sodium Chloride 30 UNIT/500 ML BAG IV SCH ×2 (05:30)
[2022-12-04] MEDS: Lactated Ringers 1,000 ML IV SCH ×3 (06:14→14:03)
[2022-12-04] MEDS ORDERED: Ampicillin 1 GM Vial IV SCH (10:00)
[2022-12-04] MEDS ORDERED: Ampicillin 1 GM Vial IM SCH (10:00)
[2022-12-04] MEDS: Ampicillin 1 GM in Sodium Chloride 0.9% 50 ML IV SCH ×2 (10:02→14:02)
[2022-12-04] MEDS ORDERED: Ropivacaine/PF 400 MG/200 ML PCA ONE (11:03)
[2022-12-04] MEDS ORDERED: Bupivacaine 0.5% 10 ML SDV ONE (11:03)
[2022-12-04] MEDS ORDERED: ePHEDrine 50 MG/ML SDV IVPUSH PRN ×2 (11:27)
[2022-12-04] MEDS ORDERED: Phenylephrine HCl 0.5 MG/5 ML AMP IVPUSH PRN (11:27)
[2022-12-04] MEDS ORDERED: Ropivacaine HCl/PF 400 MG in Premix Bag 1 BAG EPIDUR SCH (11:30)
[2022-12-04] MEDS ORDERED: Docusate Sodium 100 MG Cap PO PRN (16:05)
[2022-12-04] MEDS ORDERED: Acetaminophen 500 MG Tab PO PRN (16:05)
[2022-12-04] MEDS ORDERED: Ibuprofen 400 MG Tab PO PRN (16:05)
[2022-12-04] MEDS ORDERED: Witch Hazel Medicated Pads 40/Jar TOP PRN (16:05)
[2022-12-04] MEDS ORDERED: oxyCODONE 5 MG Tab PO PRN (16:05)
[2022-12-04] MEDS ORDERED: Lanolin 100% Cream 7 GM Tube TOP PRN (16:05)
[2022-12-04] MEDS ORDERED: Benzocaine/Menthol 20%-0.5% Spray 78 GM Cannister TOP PRN (16:05)
[2022-12-04] MEDS ORDERED: Ibuprofen 800 MG Tab PO PRN (16:05)
[2022-12-04] MEDS ORDERED: Bisacodyl 10 MG Supp RECTAL PRN (16:05)
[2022-12-04] MEDS: Acetaminophen 500 MG Tab PO PRN ×2 (19:04→23:08)
[2022-12-05] MEDS: Acetaminophen 500 MG Tab PO PRN ×2 (13:03→17:58)
== END 2022-12-05 18:10 | disposition home or self-care (01) | DRG 560 ==
LOC: MW.OBCHECK 05:07 → MW.OB 05:08 → MW.OBCHECK 05:25 → MW.OB 05:25 → OBSVTOIN 15:44 → MW.OB 18:42
PROVIDERS: ADMIT Obstetrics & Gynecology; ATTEND Obstetrics & Gynecology
PROC: 10E0XZZ Delivery of Products of Conception, External Approach (ICD-10-PCS; principal; 2022-12-04)
PROC: 3E0R3BZ Introduction of Anesthetic Agent into Spinal Canal, Percutaneous Approach (ICD-10-PCS; 2022-12-04)
PROC: 0HQ9XZZ Repair Perineum Skin, External Approach (ICD-10-PCS; 2022-12-04)
PROC: 00HU33Z Insertion of Infusion Device into Spinal Canal, Percutaneous Approach (ICD-10-PCS; 2022-12-04)
PROC: 3E033VJ Introduction of Other Hormone into Peripheral Vein, Percutaneous Approach (ICD-10-PCS; 2022-12-04)
PROC: 10907ZC Drainage of Amniotic Fluid, Therapeutic from Products of Conception, Via Natural or Artificial Opening (ICD-10-PCS; 2022-12-04)
DX: O48.0 Post-term pregnancy (principal); O99.824 Streptococcus B carrier state complicating childbirth; O99.02 Anemia complicating childbirth; D64.9 Anemia, unspecified; O70.0 First degree perineal laceration during delivery; Z37.0 Single live birth; Z3A.40 40 weeks gestation of pregnancy
CPT/HCPCS: 01967; 36415; 51702; 59025; 59409; 82803; 85014; 85018; 85027; 86592; 86850; 86870; 86900; 86901; A9270-GY; J0290; J2370; J2405; J2590; J2795; J3490; J7120